=== PATIENT | female | born 1980 ===

== ENCOUNTER 2017-03-20 00:04 | Emergency (ER) | payer OTHER ==
[2017-03-20] MEDS ORDERED: ENEMA--adult 1 EACH ONE ×2 (01:54→02:15)
[2017-03-20] MEDS ORDERED: MAGNESIUM CITRATE 300 ML BOT ONE (02:15)
== END 2017-03-20 03:23 | disposition home or self-care (01) ==
LOC: ED 00:04
DX: K59.03 Drug induced constipation (principal); T40.605A Adverse effect of unspecified narcotics, initial encounter; Y92.9 Unspecified place or not applicable